=== PATIENT | male | born 2000 | race Caucasian/White ===

== ENCOUNTER 2022-10-29 23:30 | Emergency (ER) | payer OTHER ==
[2022-10-30] MEDS ORDERED: Ibuprofen 200 MG TAB ONE (00:40)
[2022-10-30] MEDS ORDERED: Acetaminophen 500 MG TAB ONE (00:40)
[2022-10-30] MEDS ORDERED: oxyCODONE 5 MG TAB ONE (01:11)
== END 2022-10-30 03:03 | disposition home or self-care (01) ==
LOC: CSHERS 23:30
DX: S82.892A Other fracture of left lower leg, initial encounter for closed fracture (principal); V29.91XA Electric (assisted) bicycle rider (driver) (passenger) injured in unspecified traffic accident, initial encounter; Y93.I9 Activity, other involving external motion